=== PATIENT | female | born 1960 | race Caucasian/White ===

== ENCOUNTER 2025-03-11 15:24 | Outpatient (AMB) | payer MEDICARE, MEDICAID, SELFPAY ==
[2025-03-11 15:59] VITALS: BP 130/86; PULSE 76; TEMP 36.4; O2SAT 95; BMI 30.7
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
== END 2025-03-11 16:33 | disposition home or self-care (01) ==
PROVIDERS: PCP Internal Medicine Hospice and Palliative Medicine; Referring Provider Internal Medicine Hospice and Palliative Medicine; Supervising Provider Obstetrics & Gynecology; Visit Provider Obstetrics & Gynecology
DX: N39.41 Urge incontinence (principal); E78.00 Pure hypercholesterolemia, unspecified; M19.90 Unspecified osteoarthritis, unspecified site; F41.8 Other specified anxiety disorders; Z90.710 Acquired absence of both cervix and uterus; Z79.899 Other long term (current) drug therapy
CPT/HCPCS: 99204; G0463